=== PATIENT | female | born 1995 | race Caucasian/White ===

== ENCOUNTER → 2021-08-01 12:45 | Observation (INO) ==
[~2021-08-01 12:45] MED LIST: Ondansetron 4 MG/2 ML VIAL IVP ONE; Ringers Solution, Lactated 1,000 ML IVC SCH; Ringers Solution, Lactated 1,000 ML ONE
== END | disposition home or self-care (01) ==
LOC: 1NENULAB
PROVIDERS: ADMIT Advanced Practice Midwife; ATTEND Advanced Practice Midwife

== ENCOUNTER → 2021-09-12 17:15 | Observation (INO) ==
[2021-09-12 13:34] LABS: Basophils % 0.5 %; Eosinophils % 0.3 %; Hematocrit 33.3 % (35.3-44.9); Immature Granulocytes % 1.2 % (0-4); Lymphocytes # 1.4 K/mcL (0.6-4.6); Lymphocytes % 16.1 %; Mean Corpuscular Hemoglobin 28.9 pg (28.0-33.3); Mean Corpuscular Volume 87.4 fL (83.0-100.0); Mean Platelet Volume 11.3 fL (9.4-12.4); Monocytes # 0.6 K/mcL (0.0-1.3); Monocytes % 6.4 %; Neutrophils # 6.5 K/mcL (1.6-8.9); Platelet Count 201 K/mcL (140-400); Red Blood Count 3.81 M/mcL (3.82-4.97); Red Cell Distribution Width 13.5 % (11.5-14.5); Segmented Neutrophils % 75.5 %; White Blood Count 8.6 K/mcL (4.3-11.1)
[2021-09-12 13:43] LABS: Protein/Creatinine Ratio,Urine 0.18 mg/mg (0.00-0.20)
[2021-09-12 14:59] LABS: Alanine Aminotransferase 10 Units/L (7-52); Albumin 3.7 g/dL (3.5-5.7); Albumin/Globulin Ratio 1.3 (1.1-2.2); Alkaline Phosphatase 87 Units/L (34-104); Amylase 47 Units/L (29-103); Aspartate Amino Transferase 12 Units/L (13-39); BUN/Creatinine Ratio 13 (6-26); Bilirubin,Indirect 0.4 mg/dL (0.0-1.0); Bilirubin,Total 0.4 mg/dL (0.3-1.0); Blood Urea Nitrogen 5 mg/dL (6-20); Globulin 2.9 g/dL (2.4-3.5); Lactate Dehydrogenase 165 Units/L (140-271); Lipase 13 Units/L (11-82); Total Protein 6.6 g/dL (6.4-8.9); Uric Acid 4.9 mg/dL (2.3-7.6); eGFR For African Americans > 60 (> 60); eGFR For Non-African Americans > 60 (> 60)
== END | disposition home or self-care (01) ==
LOC: 1NENULAB
PROVIDERS: ADMIT Student in an Organized Health Care Education/Training Program; ATTEND Student in an Organized Health Care Education/Training Program

== ENCOUNTER → 2021-11-14 20:35 | Observation (INO) ==
[2021-11-14 18:26] VITALS: BP 126/81; PULSE 88; TEMP 97.8; O2SAT 99
[2021-11-14 18:38] LABS: Bacteria,Urine Moderate per hpf (None-Few); Bilirubin,Urine Negative (Negative); Blood,Urine Negative (Negative); Clarity,Urine Clear (Clear); Color,Urine Light-Yellow (Yellow); Glucose,Urine (UA) Normal (Normal); Ketones,Urine Negative (Negative); Leukocyte Esterase,Urine Large (Negative); Mucus,Urine Few per lpf (None-Few); Nitrite,Urine Negative (Negative); Protein,Urine Negative (Neg-Trace); RBC,Urine 0-3 per hpf (0-3); Specific Gravity,Urine 1.011 (1.010-1.025); Squamous Epithelial Cell,Urine Moderate per hpf (None-Few); Urobilinogen,Urine Normal (Normal); WBC,Urine 15-30 per hpf (0-3)
[~2021-11-14 20:35] MED LIST changes: +Magnesium Sulf 20 gm/SW 500mL 20 GM/500 ML IV.SOLN IVC SCH; +Magnesium Sulf 20 gm/SW 500mL 6 GM/150 ML BAG IV ONE; -Ondansetron 4 MG/2 ML VIAL IVP ONE; -Ringers Solution, Lactated 1,000 ML IVC SCH; -Ringers Solution, Lactated 1,000 ML ONE
== END | disposition home health service (06) ==
LOC: 1NENULAB
PROVIDERS: ADMIT Advanced Practice Midwife; ATTEND Advanced Practice Midwife

== ENCOUNTER 2021-12-08 21:00 | Inpatient (IN) ==
[2021-12-08] MEDS ORDERED: Ondansetron 4 MG/2 ML VIAL IVP PRN (22:33)
[2021-12-08] MEDS ORDERED: Naloxone 0.4 MG/ML INJ IVP PRN (22:33)
[2021-12-08] MEDS ORDERED: Metoclopramide 10 MG/2 ML VIAL IVP PRN (22:33)
[2021-12-08] MEDS ORDERED: Famotidine 20 MG/2 ML VIAL IVP PRN (22:33)
[2021-12-08] MEDS ORDERED: miSOPROStoL 25 MCG TABLET PO PRN (22:33)
[2021-12-08] MEDS ORDERED: EPHEDrine sulfate 50 MG/10 ML VIAL IVP PRN (22:34)
[2021-12-08] MEDS ORDERED: Morphine Sulfate 2 MG/ML SYRINGE IVP PRN (22:39)
[2021-12-08] MEDS ORDERED: D5% in Lactated Ringers 1,000 ML IVC SCH (22:45)
[2021-12-08] MEDS ORDERED: Epidural Premix (fent/bupiv) 110 ML EP SCH (22:45)
[2021-12-09] MEDS ORDERED: Ketorolac 30 MG/ML VIAL IVP ONE ×2
[2021-12-09 00:21] LABS: Basophils % 0.3 %; Eosinophils # 0.1 K/mcL (0.0-0.6); Eosinophils % 0.6 %; Hematocrit 33.1 % (35.3-44.9); Hemoglobin 11.1 g/dL (11.5-15.4); Immature Granulocytes % 0.7 % (0-4); Lymphocytes # 2.1 K/mcL (0.6-4.6); Lymphocytes % 22.3 %; Mean Corpuscular HGB Conc 33.5 g/dL (31.6-35.5); Mean Corpuscular Hemoglobin 28.3 pg (28.0-33.3); Mean Corpuscular Volume 84.4 fL (83.0-100.0); Mean Platelet Volume 11.8 fL (9.4-12.4); Monocytes # 0.6 K/mcL (0.0-1.3); Monocytes % 6.6 %; Neutrophils # 6.5 K/mcL (1.6-8.9); Platelet Count 185 K/mcL (140-400); Red Blood Count 3.92 M/mcL (3.82-4.97); Segmented Neutrophils % 69.5 %; White Blood Count 9.4 K/mcL (4.3-11.1)
[2021-12-09] MEDS ORDERED: Ringers Solution, Lactated 1,000 ML ONE ×4 (00:21→17:06)
[2021-12-09 00:27] LABS: Amphetamine Screen,Urine Negative ng/mL (Cutoff=1000); Barbiturate Screen,Urine Negative ng/mL (Cutoff=200); Benzodiazepines Screen,Urine Negative ng/mL (Cutoff=200); Cannabinoid Screen,Urine Negative ng/mL (Cutoff = 50); Cocaine Screen,Urine Negative ng/mL (Cutoff= 300); Opiate Screen,Urine Negative ng/mL (Cutoff=300); Phencyclidine Screen,Urine Negative ng/mL (Cutoff=25)
[2021-12-09] MEDS ORDERED: Oxytocin 30 UNIT/503 ML BAG IVC ONE ×2 (00:30→17:58)
[2021-12-09] MEDS ORDERED: Ringers Solution, Lactated 1,000 ML IVC ONE (08:38)
[2021-12-09] MEDS ORDERED: Ropivacaine/PF 0.2% 20 ML VIAL ONE ×2 (09:45→16:18)
[2021-12-09] MEDS ORDERED: 0.9 % Sodium Chloride 1,000 ML ONE (12:02)
[2021-12-09] MEDS ORDERED: Methylergonovine 0.2 MG/ML AMPUL IM ONE (15:00)
[2021-12-09] MEDS ORDERED: Terbutaline 1 MG/ML VIAL SQ ONE (17:02)
[2021-12-09] MEDS ORDERED: Azithromycin 500 MG in 0.9 % Sodium Chloride 250 ML IVPB ONE (17:37)
[2021-12-09] MEDS ORDERED: CeFAZolin 2,000 MG/120 ML BAG IVPB ONE (17:37)
[2021-12-09] MEDS ORDERED: Ondansetron 4 MG/2 ML VIAL IVP PRN ×2 (20:01→22:13)
[2021-12-09] MEDS ORDERED: Metoclopramide 10 MG/2 ML VIAL IVP PRN ×2 (20:01→22:13)
[2021-12-09] MEDS ORDERED: Simethicone 80 MG TAB.CHEW PO PRN ×2 (20:01→22:13)
[2021-12-09] MEDS ORDERED: Rho Immune Globulin 1,500 UNIT SYRINGE IM ONE ×2 (20:01→22:13)
[2021-12-09] MEDS ORDERED: *HR* OxyCODONE Immed Rel 5 MG TABLET PO PRN ×2 (20:01→22:13)
[2021-12-09] MEDS ORDERED: 0.9 % Sodium Chloride 1,000 ML IVC SCH (20:15)
[2021-12-09] MEDS ORDERED: Sennosides 8.6 MG TABLET PO SCH (21:00)
[2021-12-09] MEDS ORDERED: Acetaminophen 325 MG TABLET PO SCH (21:00)
[2021-12-09] MEDS: Acetaminophen 325 MG TABLET PO SCH (23:48)
[2021-12-09] MEDS: Ibuprofen 400 MG TABLET PO SCH (23:49)
[2021-12-10] MEDS ORDERED: Ibuprofen 800 MG TABLET PO SCH
[2021-12-10] MEDS ORDERED: CeFAZolin 2,000 MG/120 ML BAG IVPB SCH ×2 (02:00)
[2021-12-10 04:51] LABS: Basophils % 0.2 %; Eosinophils % 0.1 %; Hematocrit 33.4 % (35.3-44.9); Hemoglobin 10.9 g/dL (11.5-15.4); Immature Granulocytes % 0.4 % (0-4); Lymphocytes # 1.4 K/mcL (0.6-4.6); Lymphocytes % 11.6 %; Mean Corpuscular HGB Conc 32.6 g/dL (31.6-35.5); Mean Corpuscular Hemoglobin 27.9 pg (28.0-33.3); Mean Corpuscular Volume 85.6 fL (83.0-100.0); Mean Platelet Volume 12.5 fL (9.4-12.4); Monocytes # 0.7 K/mcL (0.0-1.3); Monocytes % 5.2 %; Neutrophils # 10.2 K/mcL (1.6-8.9); Platelet Count 164 K/mcL (140-400); Segmented Neutrophils % 82.5 %; White Blood Count 12.4 K/mcL (4.3-11.1)
[2021-12-10] MEDS: Ibuprofen 400 MG TABLET PO SCH ×4 (06:23→20:05)
[2021-12-10] MEDS: Acetaminophen 325 MG TABLET PO SCH ×3 (06:23→15:22)
[2021-12-10] MEDS: cephALEXin 500 MG CAPSULE PO SCH ×3 (08:20→20:06)
[2021-12-10] MEDS: Prenatal Vit/FA 1 EACH TABLET PO SCH (08:21)
[2021-12-10] MEDS: Aspirin 81 MG TAB.CHEW PO SCH (08:49)
[2021-12-10] MEDS ORDERED: Prenatal Vit/FA 1 EACH TABLET PO SCH (09:00)
[2021-12-10] MEDS ORDERED: Loratadine 10 MG TABLET PO SCH (09:00)
[2021-12-10] MEDS ORDERED: Sennosides 8.6 MG TABLET PO SCH (21:00)
[2021-12-11] MEDS ORDERED: Ibuprofen 800 MG TABLET PO SCH
[2021-12-11] MEDS: Ibuprofen 400 MG TABLET PO SCH ×2 (04:41→10:05)
[2021-12-11] MEDS: Acetaminophen 325 MG TABLET PO SCH ×2 (04:41→10:04)
[2021-12-11 06:41] VITALS: BP 108/64; PULSE 69; TEMP 97.7; O2SAT 98
[2021-12-11] MEDS: cephALEXin 500 MG CAPSULE PO SCH (08:15)
[2021-12-11] MEDS: Prenatal Vit/FA 1 EACH TABLET PO SCH (08:16)
[2021-12-11] MEDS: Aspirin 81 MG TAB.CHEW PO SCH (08:16)
== END 2021-12-11 15:09 | disposition home or self-care (01) | DRG 788 ==
LOC: 1NENULAB 21:48 → 1NENUOBS 12-09 22:12
PROVIDERS: ADMIT Student in an Organized Health Care Education/Training Program; ATTEND Student in an Organized Health Care Education/Training Program